=== PATIENT | female | born 1980 | race African-American/Black ===

== ENCOUNTER 2024-09-16 21:02 | Emergency (ER) | payer MEDICARE, MEDICAID ==
[~2024-09-16] VITALS: Ht 172.7 cm; Wt 104.0 kg
[2024-09-16 21:04] VITALS: TEMP 98.8; O2SAT 97
[2024-09-16 21:45] LABS: BASOPHILS % 0.7 % (0.0-2.0); EOSINOPHILS % 1.8 % (0.0-5.0); HEMATOCRIT. 31.2 % (36.0-48.0); HEMOGLOBIN. 10.1 g/dL (12.0-16.0); LYMPHOCYTES % 25.1 % (20.0-50.0); MEAN CORPUSCULAR HEMOGLOBIN 27.9 pg (28.0-32.0); MEAN CORPUSCULAR HGB CONC 32.2 g/dL (31.0-37.0); MEAN CORPUSCULAR VOLUME 86.6 fL (81.0-99.0); MEAN PLATELET VOLUME 7.6 fl (7.4-10.4); MONOCYTES % 8.3 % (2.0-8.0); NEUTROPHILS % 64.1 % (40.0-76.0); PLATELET 334 x1000/uL (130-400); RED CELL DISTRIBUTION WIDTH 15.3 % (11.6-14.6); WHITE BLOOD COUNT 7.6 x1000/uL (4.5-11.0)
[2024-09-16 21:51] LABS: CHLORIDE 105 mEq/L (98-107); POTASSIUM 3.4 mEq/L (3.5-5.1); SODIUM 139 mEq/L (136-145)
[2024-09-16 21:52] LABS: CALCIUM 9.4 mg/dL (8.7-10.4); CARBON DIOXIDE 27 mEq/L (21-32)
[2024-09-16 21:55] LABS: HCG SCREEN NEGATIVE
[2024-09-16 21:57] LABS: CREATININE 0.8 mg/dL (0.6-1.0); GLUCOSE 101 mg/dL (70-105); UREA NITROGEN BLOOD 10 mg/dL (9-23)
[2024-09-16 21:59] LABS: ALANINE AMINOTRANSFERASE 19 IU/L (10-49); ASPARTATE AMINOTRANSFERASE 25 IU/L (<34); BILIRUBIN TOTAL 0.3 mg/dL (0.1-1.0); PROTEIN TOTAL 7.1 g/dL (6.0-8.3)
[2024-09-16] MEDS: ACETAMINOPHEN 325MG TABLET PO ONE (22:04)
[2024-09-16] MEDS: ONDANSETRON HCL 4MG/2ML INJ IV ONE (22:04)
[2024-09-16] MEDS: KETOROLAC 15MG/ML VIAL IV ONE (22:04)
[2024-09-16] MEDS: MAGNESIUM/ALUMINUM HYDROXIDE/SIMETHICONE 30ML UDC PO ONE (22:04)
[2024-09-17 00:50] VITALS: BP 143/82; PULSE 85; RESP 19; O2SAT 98
[2024-09-17] MEDS ORDERED: BENZ100C86 MT (02:44)
[2024-09-17] MEDS ORDERED: ACET-2708 MT (02:44)
== END 2024-09-17 00:55 | disposition home or self-care (01) ==
LOC: ER 21:02
DX: K29.70 Gastritis, unspecified, without bleeding (principal); J45.909 Unspecified asthma, uncomplicated; E87.6 Hypokalemia
CPT/HCPCS: 99284; 96374; 96375; 80053; 84703; 83690; 85025; 36415; J1885; J2405

== ENCOUNTER 2024-09-17 01:41 | Emergency (ER) | payer MEDICARE, MEDICAID ==
[~2024-09-17] VITALS: Ht 167.6 cm; Wt 105.6 kg
[2024-09-17 01:44] VITALS: TEMP 98.7; O2SAT 99
[2024-09-17] MEDS ORDERED: ACET-2708 MT (02:44)
[2024-09-17] MEDS ORDERED: BENZ100C86 MT (02:44)
[2024-09-17 03:00] VITALS: BP 149/82; PULSE 84; RESP 15; O2SAT 98
== END 2024-09-17 03:02 | disposition home or self-care (01) ==
LOC: ER 01:41
DX: R05.9 Cough, unspecified (principal); J45.909 Unspecified asthma, uncomplicated
CPT/HCPCS: 71045; 99283